=== PATIENT | male | born 1950 | race Caucasian/White ===

== ENCOUNTER 2016-10-03 10:47 | Emergency (ER) | payer OTHER ==
[~2016-10-03] VITALS: Ht 177.8 cm; Wt 132.7 kg
[2016-10-03 10:56] VITALS: BP 154/95; PULSE 52; RESP 18; O2SAT 99
--- NOTE | 2016-10-03 11:20 | ED.REPORT ---
HPI-Extremity Problem Lower Date of Service October 03, 2016 ED Provider: Dr. Miner 66 y/o male with a hx of HTN and non-insulin dependent DM presents to the ED complaining of left mid-foot pain and swelling, onset 2 days ago after a ground- level fall. [facility] showed [facility]. Nursing Notes Stated Complaint: FRACTURED LEFT FOOT Chief Complaint: Extremity Trauma Nursing Notes Reviewed: Yes Allergies: Coded Allergies: No Known Allergies (Unverified , 10/03/16) General Time Seen by MD: 11:20 Chief Complaint Foot injury left Hx Obtained From: Patient Arrived By: Walk-in Onset Occurred: 2 days ago Symptom Duration: Since onset Location: : Foot left Quality: Painful Severity: Current: Mild Severity: Maximum: Mild Exacerbated by: Range of motion Recent Healthcare: Recent doctor visit Similar Sx Previous: No Past Medical History Past Medical History Reports: Diabetes mellitus, Hypertension Past Surgical History none reported Smoking History Current Some Day Smoker Social History Alcohol Use: "Social" Drug Use: THC Review of Systems Musculoskeletal: Reports: Extremity pain (Left foot) Complete sys rev & neg: except as marked. Physical Exam Initial Vital Signs Vital Signs (First) Date Time Temp Pulse Resp B/P Pulse Ox O2 Delivery O2 Flow Rate FiO2 10/03/16 10:56 36.5 52 18 154/95 99 Room Air Initial VS: Reviewed Head / Eyes: Atraumatic, Normocephalic Neck: Supple, Full range of motion Respiratory: Breath sounds normal, Clear to auscultation, No respiratory distress Cardiovascular: Regular rate & rhythm, Heart sounds normal, Intact distal pulses Abdomen / GI: Soft, Non-tender, No guarding, No rebound, No distention Upper Extremities: Vascular intact, Neuro intact, No swelling, No tenderness Skin: Warm, Dry, No cyanosis Neurologic: Alert, Oriented, Nonfocal Lower Extremity / Pelvis / MS: Atraumatic, Full range of motion, No swelling, Non-tender, No deformity, Neurologic intact, Vascular intact Ankle / Foot: No deformity, Neurologic intact, Vascular intact Diffuse swelling of the left foot. 2+ dorsal pedal pulse General/Constitutional: Awake, Alert, No acute distress, Cooperative Interpretation & Diagnostics X-Ray Interpretation Xray Interpretation: IMPRESSION: Suspect a small avulsion fracture fragment dorsal to the first metatarsal head. Dictated by: Deidre Christine M.D. on 10/03/2016 at 11:52 Approved by: Deidre Christine M.D. on 10/03/2016 at 11:54 X-Ray Ordered: Foot left Interpretation / Wet Read by: Interpret - Radiologist Re-Eval/Medical Decision Re-Evaluation/Progress : Time of Eval: 12:00 Re-Evaluation/Progress Note: Rechecked pt. Discussed imaging results and diagnosis. Informed the pt of the plan to discharge. Pt understands and agrees with plan. F/U instructions and RTER warning given. All questions addressed. Counseled Regarding: Diagnosis, Lab results, Need for follow-up, When/why to return to ED Discharge & Departure Impression: Primary Impression: Avulsion fracture of metatarsal bone of left foot Encounter type: initial encounter Fracture type: closed Qualified Code: S92.302A - Fracture of unspecified metatarsal bone(s), left foot, initial encounter for closed fracture Disposition: Home Discharge Condition All VS Reviewed: Yes Condition: Critical Patient Instructions: Foot Fracture in Adults (GEN) Additional Instructions: Take Vicodin as prescribed for pain. Wear the walking boot or use crutches. Follow up with your orthopedist in a week for further evaluation. Return to the emergency department in case of worsening swelling or any other new or concerning symptoms. Referrals: [facility] Scribe Attestation Portions of this note were transcribed by Seth Genao. I, , personally performed the history, physical exam and medical decision-making;I reviewed and confirmed the accuracy of the information in the transcribed note. Signed by Blanca Pena. 10/03/16 12:34 copies to: [facility] Kei Miner DO October 03, 2016 11:20 Seth Genao October 03, 2016 11:24
--- NOTE | 2016-10-03 11:55 | DRSVH ---
PROCEDURE: X-RAY LEFT FOOT COMPLETE, MINIMUM THREE VIEWS ([id number]) INDICATIONS: trauma , fall TECHNIQUE: 3 views of the foot were acquired. COMPARISON: None. FINDINGS: Bones: There is a small ossicle dorsal to the first metatarsal head suspicious for a small avulsion f racture fragment. No suspicious bony lesions. Soft tissues: No tibiotalar joint effusion. Achilles tendon appears normal. Dorsal soft tissue swe lling. IMPRESSION: Suspect a small avulsion fracture fragment dorsal to the first metatarsal head. Dictated by: Deidre Christine M.D. on 10/03/2016 at 11:52 Approved by: Deidre Christine M.D. on 10/03/2016 at 11:54
[2016-10-03 12:51] VITALS: BP 167/99; PULSE 55; RESP 16; O2SAT 99
== END 2016-10-03 13:04 | disposition home or self-care (01) ==
LOC: SED 10:47
DX: S92.312A Displaced fracture of first metatarsal bone, left foot, initial encounter for closed fracture (principal); W18.39XA Other fall on same level, initial encounter; Y93.89 Activity, other specified; Y92.89 Other specified places as the place of occurrence of the external cause; Y99.8 Other external cause status; I10 Essential (primary) hypertension; E11.9 Type 2 diabetes mellitus without complications; F17.200 Nicotine dependence, unspecified, uncomplicated